=== PATIENT | male | born 1965 | race American Indian/Alaskan Native ===

== ENCOUNTER 2018-10-16 21:45 | Emergency (ER) | payer MEDICAID ==
[~2018-10-16] VITALS: Ht 180.3 cm; Wt 136.4 kg
[2018-10-16] MEDS ORDERED: HYDROcodone/acetaminophen 10/325mg tab PO ONE (22:15)
[2018-10-16] MEDS ORDERED: fentaNYL/PF 50MCG/1 ML 2ML syringe IV ONE (22:40)
[2018-10-16] MEDS ORDERED: ketamine 50 mg/ml 10ml vial IV ONE (22:40)
[2018-10-16] MEDS ORDERED: LORazepam 2 mg/ml vial IV ONE (23:05)
[2018-10-17] MEDS ORDERED: LORazepam 2 mg/ml vial IV ONE (00:35)
[2018-10-17 01:20] VITALS: BP 190/96
[2018-10-17] MEDS ORDERED: HYDR-4383 PO (01:26)
== END 2018-10-17 01:55 | disposition home or self-care (01) ==
LOC: ER 21:46
DX: S53.114A Anterior dislocation of right ulnohumeral joint, initial encounter (principal); Z88.0 Allergy status to penicillin; W01.0XXA Fall on same level from slipping, tripping and stumbling without subsequent striking against object, initial encounter; Y93.01 Activity, walking, marching and hiking; Y92.89 Other specified places as the place of occurrence of the external cause; Y99.8 Other external cause status
CPT/HCPCS: 23650; 73020; 73030; 96374; 96375; 96376; 99152; 99153; 99285; J2060; J3010